=== PATIENT | male | born 1975 | race Caucasian/White ===

== ENCOUNTER 2017-02-22 16:22 | Emergency (ER) | payer OTHER ==
[~2017-02-22] VITALS: Ht 177.8 cm; Wt 89.4 kg
[2017-02-22 17:39] LABS: HEMATOCRIT 46.2 % (39.2-51.8); WHITE BLOOD COUNT 5.6 x10^3/uL (3.4-10)
[2017-02-22] MEDS ORDERED: GADOBUTROL 10 MMOL/10 ML VIAL ONE (17:50)
[2017-02-22 17:53] LABS: BLOOD UREA NITROGEN 15 mg/dL (7-18)
[2017-02-22 17:56] LABS: ASPARTATE AMINO TRANSFERASE 25 U/L (15-37)
[2017-02-22] MEDS ORDERED: LIDOCAINE 1%, 20ML ONE (18:47)
[2017-02-22 19:15] LABS: CYTOLOGY BODY FLUID RECD INTO PATHOLOGY; CYTOLOGY BODY FLUID SOURCE CEREBROSPINAL FLUID
[2017-02-22 19:52] LABS: GLUCOSE, CSF 55 mg/dL (40-80)
[2017-02-22 20:24] VITALS: BP 112/76
[2017-02-24 14:00] LABS: ANA SCREEN NEGATIVE (Negative)
== END 2017-02-22 20:27 | disposition home or self-care (01) ==
LOC: ED 20:15
DX: H54.62 Unqualified visual loss, left eye, normal vision right eye (principal); F41.9 Anxiety disorder, unspecified; F32.9 Major depressive disorder, single episode, unspecified
CPT/HCPCS: 36415; 62270; 70543; 70546; 70553; 80053; 82040; 82042; 82164; 82784; 82945; 83873; 84157; 85025; 85610; 85651; 85730; 86038; 86592; 86645; 86695; 86696; 86762; 86777; 86778; 87070; 87075; 87102; 87116; 87205; 87206; 88108; 89051; 99285; A9585

== ENCOUNTER 2020-03-14 16:51 | Emergency (ER) | payer OTHER ==
[~2020-03-14] VITALS: Ht 177.8 cm; Wt 79.5 kg
[2020-03-14 17:13] VITALS: BP 139/83
[2020-03-14] MEDS ORDERED: DIAMOX PO (17:19)
--- NOTE | 2020-03-14 17:38 | NUR ---
ed md at bedside for eval.
== END 2020-03-14 18:45 | disposition home or self-care (01) ==
LOC: ED 18:00
DX: J02.8 Acute pharyngitis due to other specified organisms (principal); Z20.828 Contact with and (suspected) exposure to other viral communicable diseases; B97.89 Other viral agents as the cause of diseases classified elsewhere
CPT/HCPCS: 87635; 99282; 99283; U0003

== ENCOUNTER 2020-03-16 17:02 | Emergency (ER) | payer OTHER ==
[~2020-03-16] VITALS: Ht 177.8 cm; Wt 85.8 kg
[~2020-03-16 17:02] MED LIST: DIAMOX PO
[2020-03-16 17:08] VITALS: BP 137/81
--- NOTE | 2020-03-16 18:33 | NUR ---
DISCHARGED FROM [facility]
== END 2020-03-16 18:35 | disposition home or self-care (01) ==
LOC: ED 18:15
DX: J02.8 Acute pharyngitis due to other specified organisms (principal); B97.89 Other viral agents as the cause of diseases classified elsewhere; Z20.828 Contact with and (suspected) exposure to other viral communicable diseases
CPT/HCPCS: 87635; 99283; U0003

== ENCOUNTER → 2020-08-19 | Outpatient (CLI) | payer OTHER | END | disposition home or self-care (01) | LOC: RAD 09:21 | PROVIDERS: ATTEND Urology | DX: N20.0 Calculus of kidney (principal) | CPT/HCPCS: 74018 ==